=== PATIENT | female | born 1960 | race Caucasian/White ===

== ENCOUNTER 2020-11-06 19:07 | Emergency (ER) | payer OTHER ==
[~2020-11-06] VITALS: Ht 165.1 cm; Wt 79.4 kg
[2020-11-06] MEDS ORDERED: LIPITOR10 MG PO (19:25)
[2020-11-06] MEDS ORDERED: LEXAPRO10 MG PO (19:26)
[2020-11-06] MEDS ORDERED: CEPHALEXIN500 M1 PO (21:52)
== END 2020-11-06 22:54 | disposition home or self-care (01) ==
LOC: ED 19:07
DX: M25.532 Pain in left wrist (principal); Z79.899 Other long term (current) drug therapy; Z88.2 Allergy status to sulfonamides